=== PATIENT | male | born 1980 | race Caucasian/White ===

== ENCOUNTER 2017-03-06 15:37 | Emergency (ER) | payer SELFPAY ==
[2017-03-06 15:44] VITALS: BP 125/70; PULSE 64; TEMP 98.2
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
[2017-03-06] MEDS ORDERED: IBUPROFEN 600 MG TABLET (FP) PO ONE ×2 (16:56→16:58)
== END 2017-03-06 17:14 | disposition home or self-care (01) ==
LOC: JERFT 15:37
DX: S13.4XXA Sprain of ligaments of cervical spine, initial encounter (principal); S39.012A Strain of muscle, fascia and tendon of lower back, initial encounter; V49.49XA Driver injured in collision with other motor vehicles in traffic accident, initial encounter; Y92.488 Other paved roadways as the place of occurrence of the external cause; Y93.89 Activity, other specified; Y99.8 Other external cause status
CPT/HCPCS: 99281-25